=== PATIENT | female | born 1950 ===

== ENCOUNTER 2017-03-27 11:53 | Outpatient (CLI) | payer OTHER ==
[~2017-03-27 11:53] MED LIST: CALCIUM1 TAB PO; COREG CR10 MG PO; HYZAAR 50-12.1 UDTAB PO; SYNTHROID125 MCG PO; SYNTHROID200 MCG PO
== END 2017-03-27 17:00 | disposition home or self-care (01) ==
LOC: SONOGRAMA 11:53 → MRI 14:45 → SONOGRAMA 17:00
DX: M25.571 Pain in right ankle and joints of right foot (principal); M25.572 Pain in left ankle and joints of left foot; S93.431A Sprain of tibiofibular ligament of right ankle, initial encounter

== ENCOUNTER 2017-03-27 12:04 | Outpatient (CLI) | payer OTHER | END 2017-03-27 17:00 | disposition home or self-care (01) | LOC: MRI 12:04 | DX: M25.571 Pain in right ankle and joints of right foot (principal); M25.572 Pain in left ankle and joints of left foot; S93.431A Sprain of tibiofibular ligament of right ankle, initial encounter | CPT/HCPCS: 73721 ==

== ENCOUNTER 2017-03-27 12:14 | Outpatient (CLI) | payer OTHER | END 2017-03-27 17:00 | disposition home or self-care (01) | LOC: RAD 12:14 | DX: M25.571 Pain in right ankle and joints of right foot (principal); M25.572 Pain in left ankle and joints of left foot ==

== ENCOUNTER 2017-03-27 13:03 | Outpatient (CLI) | payer OTHER | END 2017-03-27 13:15 | disposition home or self-care (01) | LOC: SONOGRAMA 13:03 | DX: M25.571 Pain in right ankle and joints of right foot (principal); M25.572 Pain in left ankle and joints of left foot; S93.431A Sprain of tibiofibular ligament of right ankle, initial encounter ==

== ENCOUNTER 2017-03-28 12:41 | Outpatient (CLI) | payer OTHER | END 2017-03-28 12:46 | disposition home or self-care (01) | LOC: NUCLEAR 12:41 | DX: I73.9 Peripheral vascular disease, unspecified (principal) ==

== ENCOUNTER 2018-04-18 07:26 | Outpatient (CLI) | payer OTHER | END 2018-04-18 07:28 | disposition home or self-care (01) | LOC: SONOGRAMA 07:26 | DX: C73 Malignant neoplasm of thyroid gland (principal) ==

== ENCOUNTER 2019-03-30 18:36 | Emergency (ER) | payer OTHER ==
[~2019-03-30] VITALS: Ht 157.5 cm; Wt 88.0 kg
== END 2019-03-31 00:16 | disposition home or self-care (01) ==
LOC: ER 18:36
DX: R10.31 Right lower quadrant pain (principal)